=== PATIENT | male | born 1985 | race Two or more races ===

== ENCOUNTER 2024-01-02 14:29 | Emergency (ER) | payer MEDICAID ==
[~2024-01-02] VITALS: Ht 180.3 cm; Wt 118.0 kg
[2024-01-02 16:12] VITALS: BP 133/78; PULSE 69; RESP 18; TEMP 99; O2SAT 97
== END 2024-01-02 16:15 | disposition home or self-care (01) ==
LOC: EDBD 14:29 → ER 14:29
DX: S43.401A Unspecified sprain of right shoulder joint, initial encounter (principal); W21.01XA Struck by football, initial encounter; Y93.61 Activity, american tackle football; Y92.89 Other specified places as the place of occurrence of the external cause; Y99.8 Other external cause status
CPT/HCPCS: 73030